=== PATIENT | female | born 1970 | race Caucasian/White ===

== ENCOUNTER 2023-11-05 10:45 | Outpatient (RCR) | payer OTHER, SELFPAY ==
--- NOTE | 2023-10-29 12:49 | OT.OPOE ---
OT Outpatient Ortho Eval OT Outpatient Ortho Eval* Start: 10/29/23 12:13 Freq: Status: Active Protocol: Document 10/29/23 12:13 EDMOND (Rec: 10/29/23 12:43 EDMOND [id number]) E-signed By Lorena Nascimento, OTR/L, CLT OT OP Ortho Eval Details Complexity Complexity Low Insurance Information Insurance Information [employer] Insurance Information Comments [facility] [place] Outpatient History/Precautions Current Condition/Medical Diagnosis Referring Provider Dr. Humberto Seals Treatment Diagnosis Pain in R wrist, M25.531 & Stiffness in R wrist M25.631 Date of Onset 09/14/23 Precautions Lifting Restrictions Other Precautions 5 lb lifting restriction Other Conditions Current/Active: Medical Diagnoses Closed traumatic nondisplaced fracture of distal end of right radius with routine healing, subsequent encounter S52.501D PMH/Surgical History History of removal of cyst Z98.890 - Other specified postprocedural states (ICD-10) Status post Achilles tendon repair Z98.890 - Other specified postprocedural states Medical/Functional History Medical History Reviewed Yes Prior Level of Function/Mobility Patient is fully Indep with her self cares and IADLs Still able to drive Social History Employment Status Unemployed Current Occupation 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 She claims she had some unusual discomfort right away but didn 't think it was a serious injury at that time. The pain seemed to be more noticeable a day or 2 later and now she has swelling on the left wrist dorsal and radial aspect and bruising around that distal radius with bruising both on the dorsum of the wrist and the volar aspect. She was keeping it wrapped with an Lopez wrap and using ice. 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 She was referred to ORTHO provider on 09/24/[address] Seals. Medical dx: Right distal radius fracture that she sustained after slipping on her floor and landing on her outstretched right hand. X -rays revealed a nondisplaced right distal radius fracture. Past history is fairly benign with no major medical problems . She takes no meds on a regular basis. Her only surgeries include left Achilles tendon repair in 2017 and removal of a cyst from the left anterior cervical area when she was a teenager. Pain Assessment Pain Present Pain Present Pain Reported Location Right Wrist Description Tightness,Throbbing,With Movement Intensity 7 Range of Motion and Strength Elbow/Forearm Range of Motion and Strength Elbow/Forearm Range of Motion and bilateral elbow AROM is WFL Strength R arm supination is 75 degrees with full pronation Wrist Range of Motion and Strength Wrist Range of Motion and Strength R wrist flexion, 30 degrees and extension 25 degrees R wrist radial deviation is 20 degrees and ulnar deviation is 24 degrees (active) Hand/Finger/Thumb Range of Motion and Strength Hand/Finger/Thumb Range of Motion and Patient is able to make a full Strength composite fist with R hand but has tightness, recommended her to work on tendon glides and provided yellow putty to work on making a fist (active hand grasping) Hand Pinch/Bowl Sander Strength Hand Right Bowl Sander Strength Position 1 (lbs) 21 Bowl Sander Strength Position 2 (lbs) 21 Lateral Pinch Strength (lbs) 11 Three Point Pinch (lbs) 8 Tip Pinch Strength (lbs) 8 Left Bowl Sander Strength Position 1 (lbs) 65 Bowl Sander Strength Position 2 (lbs) 65 Lateral Pinch Strength (lbs) 14 Three Point Pinch (lbs) 10 Tip Pinch Strength (lbs) 10 OT Objective Data Skin/Wounds/Edema Comments Mild diffuse soft tissue swelling but no obvious deformity. Distal radius was tender to palpation. Radial, ulnar, median sensation intact to light touch. Thumb extension, thumb opposition, thumb IP flexion, and intrinsics are intact. Fingers warm well perfused 2+ radial pulse. Circumference measurement of the R wrist crease 17.5 cm's and L wrist crease 15.5 cm's Additional Information Objective Additional Information IMAGING: These demonstrated an nondisplaced, intra-articular fracture of the distal radius. OT Problems Problems Problems Decreased Strength,Decreased Range of Motion,Pain,Lifting, Gripping,Pinching Other Problems Writing,Opening Containers, Dressing,Computer,Fasteners Patient Potential Excellent Assessment Assessment Assessment 53-year-old right hand dominant female was playing a game, floor tic-tac-toe, and she was running and dropping something on the floor when she fell and she ended up somehow landing on her right hand off to the side , 09/04/23. She claims she had some unusual discomfort right away but didn 't think it was a serious injury at that time. The pain seemed to be more noticeable a day or 2 later and now she has swelling on the left wrist dorsal and radial aspect and bruising around that distal radius with bruising both on the dorsum of the wrist and the volar aspect. She was keeping it wrapped with an Lopez wrap and using ice. 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 She was referred to ORTHO provider on 09/24/[address] Seals. Medical dx: Right distal radius fracture that she sustained after slipping on her floor and landing on her outstretched right hand. X -rays revealed a nondisplaced right distal radius fracture. She was treated conservatively /non-surgical with a short arm cast then transitioned to a prefab wrist brace. Patient reports no longer needing the brace. Patient pain at best is zero at rest and 7/10 at worse (with R hand activity). She is not working right now and has a supportive spouse ( who works from home) for higher level demands/IADLs. POC to include modalities as needed, reducing swelling and pain, developing an HEP that will progress from PROM to AAROM, then AROM. Therapy to follow Ortho restrictions/ precautions and advance patient as able. Patient is an excellent candidate for therapy, she was pleasant, alert, orientated, asked great questions in session, was an active listener to information presented to her and showed signs of motivation/ willingness to follow the presented protocol in POC. Occupational Therapy Treatment Plan - OP Potential Rehabilitation Potential Excellent Barriers Barriers to goal attainment None noted Set Goals Goals Set with Patient Yes Goals Goals 1. Patient will increase R ( dominant) hand auto refinisher strength from 21 lbs to >40 lbs in order to return to everyday tasks w/o fear of dropping items. 2. Patient will advance R ( dominant) hand supination from 75 degrees to >83 degrees w/o increased discomfort. 3. Patient will increase total pinch weight (11+8+8 lbs) from 27 lbs to >32 lbs in order to perform leisure activities and IADLs with R dominant hand. 4. Patient will report pain from 7/10 at worse to <4/10 at worse with everyday household tasks. 5. Patient will be Indep with an individualized, comprehensive HEP with participation >15 mins per day 7 days per week. Target Date 6 weeks Treatment Plan Treatment Plan Evaluation,Edema Control,Joint Mobilization,Manual Therapy, Ultrasound,Therapeutic Exercise,Self Care/Home Management,Education Expected Frequency 1x Week Expected Duration 8-10 Weeks Home Program Home Program Home Program Initiated Home Program Specifics AROM of R hand/wrist and elbow & Tendon Glides Light, Soft Putty for R hand auto refinisher & pinch squeezes Recertification Information Recertification Information Initial Certification Date 10/29/23 Recertification Due Date 01/27/24 Click To Default 'Per treatment plan' Per treatment plan Continued Plan of Care and Interventions Per treatment plan Provider Signature Shows Agreement With POC & Medical Necessity Physician Comment/Change Comment or Changes Physician NPI Number #
== END 2024-03-04 23:59 | disposition home or self-care (01) ==
PROVIDERS: PCP Family Medicine; Visit Provider Orthopaedic Surgery
DX: S52.501A Unspecified fracture of the lower end of right radius, initial encounter for closed fracture (principal); Z51.89 Encounter for other specified aftercare
CPT/HCPCS: 97110; 97165; X5282